=== PATIENT | male | born 1945 | race Caucasian/White ===

== ENCOUNTER 2017-03-21 05:04 | Emergency (ER) | payer MEDICARE ==
[~2017-03-21] VITALS: Ht 172.7 cm; Wt 70.0 kg
[~2017-03-21 05:04] MED LIST: ADULT LOW DOSE81 MG PO; AMLODIPINE BESYL5 MG PO; LISINOPRIL10 MG PO; PRILOSEC 20MG20 MG PO; SYMBICORT1 AE2 IH
[2017-03-21] MEDS ORDERED: ASPIRIN 81M81 MG/TA2 PO (05:25)
[2017-03-21] MEDS ORDERED: ZOCOR20 M1 PO (05:25)
[2017-03-21] MEDS ORDERED: BRILINTA90 MG PO (05:26)
[2017-03-21] MEDS ORDERED: ZIAC 10-6.25 M1 EACH PO (05:26)
[2017-03-21] MEDS ORDERED: PRILOSEC OTC20 MG PO (05:26)
[2017-03-21] MEDS ORDERED: SYMBICORT1 AE3 IH (05:27)
[2017-03-21] MEDS ORDERED: NORVASC 10MG10 MG PO (05:27)
[2017-03-21] MEDS ORDERED: ZESTRIL40 M1 PO (05:27)
[2017-03-21] MEDS ORDERED: PREDNISONE20 MG PO (06:20)
[2017-03-21] MEDS ORDERED: EPIPEN 2-PAK1 MG/ML MR (06:20)
[2017-03-21 08:32] VITALS: BP 138/85
== END 2017-03-21 08:48 | disposition short-term general hospital (02) ==
LOC: ED 05:04
DX: T78.1XXA Other adverse food reactions, not elsewhere classified, initial encounter (principal); T78.3XXA Angioneurotic edema, initial encounter; J44.9 Chronic obstructive pulmonary disease, unspecified; I10 Essential (primary) hypertension; I48.91 Unspecified atrial fibrillation; Z87.891 Personal history of nicotine dependence; Z90.5 Acquired absence of kidney
CPT/HCPCS: J0171; J1200; J2930; J7030

== ENCOUNTER → 2018-11-06 | Outpatient (CLI) | payer MEDICARE ==
[~2018-11-06] MED LIST changes: +ASPIRIN 81M81 MG/TA2 PO; +BRILINTA90 MG PO; +EPIPEN 2-PAK1 MG/ML MR; +NORVASC 10MG10 MG PO; +PREDNISONE20 MG PO; +PRILOSEC OTC20 MG PO; +SYMBICORT1 AE3 IH; +ZESTRIL40 M1 PO; +ZIAC 10-6.25 M1 EACH PO; +ZOCOR20 M1 PO
== END ==
LOC: RAD 07:23
DX: I71.4 Abdominal aortic aneurysm, without rupture (principal)

== ENCOUNTER → 2021-06-06 | Outpatient (CLI) | payer MEDICARE | LOC: RAD 09:00 | DX: E04.2 Nontoxic multinodular goiter (principal) ==

== ENCOUNTER 2021-09-14 16:06 | Emergency (ER) | payer OTHER, MEDICARE ==
[2021-09-14] MEDS ORDERED: LEVOTHYROXINE112 MCG PO (16:31)
[2021-09-14] MEDS ORDERED: NORCO 325 MG-7.1 TA1 PO (16:31)
[2021-09-14] MEDS ORDERED: CYCLOBENZAPRINE10 M1 PO (17:08)
[2021-09-14] MEDS ORDERED: KETOROLAC10 MG PO (17:08)
[2021-09-14 17:20] VITALS: BP 85/50
== END 2021-09-14 17:20 | disposition home or self-care (01) ==
LOC: ED 16:06
DX: M25.511 Pain in right shoulder (principal); M54.2 Cervicalgia
CPT/HCPCS: J1885; J2360